=== PATIENT | male | born 1995 | race Two or more races ===

== ENCOUNTER 2021-08-29 21:49 | Emergency (ER) | payer OTHER ==
[~2021-08-29] VITALS: Ht 170.2 cm; Wt 70.3 kg
--- NOTE | 2021-08-29 22:18 | NUR ---
TO ER BED 11. [id number] FROM HOME C/O OD ON ALPRAZOLAM TOOK TWO PILLS IN THE AM AND TWO PILLS AT NIGHT 2MG EACH PILL. PT IS ALERT AND FOLLOWS SIMPLE COMMANDS. AMBULATORY W/ UNSTEADY GAIT. SAFETY PRECAUTIONS IN PLACE. CONNECTED TO MONITOR. NOT IN RESPIRATORY DISTRESS. AWAITING MD NATHAN
--- NOTE | 2021-08-29 22:35 | NUR ---
GIRLFRIEND WHIT [phone]
--- NOTE | 2021-08-29 22:39 | NUR ---
URINE SAMPLE COLLECTED AND SENT TO LAB
--- NOTE | 2021-08-30 00:21 | NUR ---
Patient discharged to home in stable condition. Written and verbal after care instructions given. Patient verbalizes understanding of instruction.
[2021-08-30 00:22] VITALS: BP 132/64
== END 2021-08-30 00:22 | disposition home or self-care (01) ==
LOC: ER 21:51
DX: T42.4X1A Poisoning by benzodiazepines, accidental (unintentional), initial encounter (principal); Z60.2 Problems related to living alone; Z91.013 Allergy to seafood; Y92.89 Other specified places as the place of occurrence of the external cause